=== PATIENT | male | born 1945 | race Caucasian/White ===

== ENCOUNTER → 2016-11-15 | Outpatient (CLI) | payer MEDICARE, BC ==
[2016-11-15 08:41] LABS: Blood Urea Nitrogen 23 mg/dL (9-20); Non-African American GFR(MDRD) >60 (>60 ml/min/1.73 sqM)
--- NOTE | 2016-11-15 10:58 | CT ---
EXAMINATION TYPE: CT ChestAbdPelvis w con DATE OF EXAM: 11/15/2016 COMPARISON: CT CAP April 19, 2016. HISTORY: Cancer of unknown primary progress study. CT DLP: 681.4 mGycm. Automated Exposure Control for Dose Reduction was Utilized. CONTRAST: CT scan of the thorax, abdomen and pelvis is performed with oral and with IV Contrast, patient inject ed with 100 mL of Omnipaque 300. FINDINGS: LUNGS: Minimal linear scarring or atelectasis in both lung bases remains present. Minimal apical scar ring is present bilaterally. No suspicious new nodule or mass is present. There is no pleural effus ion or pneumothorax seen. The tracheobronchial tree is patent. MEDIASTINUM: There are no greater than 1 cm hilar or mediastinal lymph nodes. There is persistent car diomegaly with moderate to severe right atrial and mild to moderate left atrial dilatation. Small per icardial effusion is redemonstrated. Coronary artery calcification is redemonstrated. OTHER: No additional significant abnormality is seen. LIVER/GB: Subcentimeter low dense lesion right hepatic lobe near gallbladder fossa on axial image 69 is too small to further characterize but stable and thought presumed benign. Additional smaller lesio n inferiorly is stable and presumed benign on image 78 series 7 PANCREAS: No significant abnormality is seen. SPLEEN: No significant abnormality is seen. ADRENALS: No significant abnormality is seen. KIDNEYS: Bladder is poorly distended and thus suboptimally evaluated. There is concentric mild abnorm al wall thickening, cystitis should be excluded clinically. Finding likely on basis of outlet obstruc tion related to enlarged prostate gland. BOWEL: Oral contrast reaches proximal colonic level. There is fecal prominence throughout the colon m ost pronounced in right and left and transverse colon. No suspicious small or large bowel dilatation is seen. Correlate for colonic fecal stasis. GENITAL ORGANS: Prostate gland is heterogeneous in appearance and enlarged in size consistent with BP H. Central zone calcifications are present. LYMPH NODES: No greater than 1cm abdominal or pelvic lymph nodes are appreciated. OSSEOUS STRUCTURES: Some multilevel spurring and disc space narrowing mid thoracic spine is present. There is disc space narrowing at lumbosacral junction. OTHER: Mild atherosclerotic change of the abdominal aorta extending into pelvic branch vessels is not ed.. IMPRESSION: No new mass or adenopathy is seen to suggest neoplastic recurrence or progression.
== END | disposition home or self-care (01) ==
LOC: RADCTMAIN 08:02
PROVIDERS: ATTEND Internal Medicine Hematology & Oncology
DX: C80.0 Disseminated malignant neoplasm, unspecified (principal)
CPT/HCPCS: 82565; 84520; 71260; 74177; 36415; Q9967

== ENCOUNTER → 2017-05-16 | Outpatient (CLI) | payer MEDICARE ==
[2017-05-16 12:11] LABS: Blood Urea Nitrogen 24 mg/dL (9-20)
--- NOTE | 2017-05-16 13:34 | CT ---
EXAMINATION TYPE: CT ChestAbdPelvis w con DATE OF EXAM: 05/16/2017 COMPARISON: 11/15/2016 HISTORY: Unknown primary CA CT DLP: 601.4 mGycm Automated exposure control for dose reduction was used. CONTRAST: CT scan of the chest, abdomen and pelvis is performed with Oral Contrast and with IV Contrast, patien t injected with 100 mL of Omnipaque 300. FINDINGS: LUNGS: Minimal linear scarring or atelectasis in both lung bases remains present. Minimal apical scar ring is present bilaterally. No suspicious new nodule or mass is present. There is no pleural effusio n or pneumothorax seen. The tracheobronchial tree is patent. MEDIASTINUM: There are no greater than 1 cm hilar or mediastinal lymph nodes. There is persistent car diomegaly with moderate to severe right atrial and mild to moderate left atrial dilatation. Small per icardial effusion is redemonstrated. Coronary artery calcification is redemonstrated. OTHER: No additional significant abnormality is seen. LIVER/GB: Subcentimeter low dense lesion right hepatic lobe near gallbladder fossa is too small to f urther characterize but stable and thought presumed benign. Additional smaller lesion inferiorly is s table and presumed benign. PANCREAS: No significant abnormality is seen. SPLEEN: No significant abnormality is seen. ADRENALS: No significant abnormality is seen. KIDNEYS: Bladder is poorly distended and thus suboptimally evaluated. There is concentric mild abnorm al wall thickening, cystitis should be excluded clinically. Finding likely on basis of outlet obstruc tion related to enlarged prostate gland. BOWEL: Oral contrast reaches proximal colonic level. There is fecal prominence throughout the colon m ost pronounced in right and left and transverse colon. No suspicious small or large bowel dilatation is seen. Correlate for colonic fecal stasis. Diverticulosis with no CT evidence of diverticulitis. GENITAL ORGANS: Prostate gland is heterogeneous in appearance and enlarged in size consistent with BP H. Central zone calcifications are present. LYMPH NODES: No greater than 1cm abdominal or pelvic lymph nodes are appreciated. OSSEOUS STRUCTURES: Some multilevel spurring and disc space narrowing mid thoracic spine is present. There is disc space narrowing at lumbosacral junction. Sclerosis the pars of L5 noted bilaterally wit h early pars defects suspected. OTHER: Mild atherosclerotic change of the abdominal aorta extending into pelvic branch vessels is not ed.. IMPRESSION: No new mass or adenopathy is seen to suggest neoplastic recurrence or progression.
== END | disposition home or self-care (01) ==
LOC: RADCTMAIN 11:18
PROVIDERS: ATTEND Internal Medicine Hematology & Oncology
DX: C80.0 Disseminated malignant neoplasm, unspecified (principal); Z91.013 Allergy to seafood
CPT/HCPCS: 82565; 84520; 71260; 74177; 36415; Q9967

== ENCOUNTER → 2017-11-15 | Outpatient (CLI) | payer MEDICARE ==
--- NOTE | 2017-11-15 15:10 | CT ---
EXAMINATION TYPE: CT ChestAbdPelvis w con DATE OF EXAM: 11/15/2017 COMPARISON: 05/16/2017 HISTORY: F/U CA CT DLP: 557.8 mGycm CONTRAST: CT scan of the chest, abdomen and pelvis is performed with Oral Contrast and with IV Contrast, patien t injected with 100 mL of Isovue 300. [address] Chest: LUNGS: The lungs are clear and free of infiltrate or atelectasis. No pulmonary nodule or mass is det ected. No pleural effusion or CT evidence of interstitial lung disease. MEDIASTINUM: Thoracic aorta is of normal caliber. The heart is enlarged. No evidence for mediastin al mass or adenopathy. HILAR STRUCTURES: No evidence for mass. No hilar adenopathy is appreciated. OTHER: No significant abnormality. CONTRAST CT ABDOMEN AND PELVIS FINDINGS: LIVER/GB: No calcified gallstones. No space occupying hepatic lesion. Biliary tree is of normal ca liber. PANCREAS: No inflammation. No distinct mass. SPLEEN: No splenic enlargement. No lesion seen. ADRENALS: No nodule. No thickening. KIDNEYS/BLADDER: No hydronephrosis. No nephrolithiasis. No distinct renal mass. BOWEL: Normal appendix. Normal bowel caliber. No inflammation. GENITAL ORGANS: Prostate gland enlargement with internal calcifications. LYMPH NODES: No greater than 1cm abdominal or pelvic lymph nodes are appreciated. AORTA: No significant abnormality. OSSEOUS STRUCTURES: No significant abnormality is seen. OTHER: No significant additional abnormality is seen. IMPRESSION: 1. No evidence for malignancy. 2 cardiomegaly. 3. COPD.
== END | disposition home or self-care (01) ==
LOC: RADCTMAIN 11:31
PROVIDERS: ATTEND Internal Medicine Hematology & Oncology
DX: C80.0 Disseminated malignant neoplasm, unspecified (principal); J44.9 Chronic obstructive pulmonary disease, unspecified
CPT/HCPCS: 82565; 84520; 71260; 74177; 36415; Q9967

== ENCOUNTER → 2018-02-27 | Outpatient (CLI) | payer MEDICARE ==
--- NOTE | 2018-02-27 15:17 | CT ---
EXAMINATION TYPE: CT soft tissue neck w con DATE OF EXAM: 02/27/2018 HISTORY: History of tongue cancer COMPARISON: 09/22/2015 and 11/15/2017 CT DLP: 338.2 mGycm. Automated Exposure Control for Dose Reduction was Utilized. TECHNIQUE: CT scan of the neck is performed with IV Contrast, patient injected with 100 mL of Isovue 300, axial images are obtained, coronal and sagittal reformatted images are reviewed. FINDINGS: Airway: The known tongue base mass is not identified. No recurrence is appreciated. The fossa of Ivone nmuller, torus tubarius, vallecula, piriform sinuses, true vocal cords, and false vocal cords are unr emarkable. Posterior nasopharynx and oropharynx are patent. Parotid/submandibular glands: No gross abnormality seen. Carotid/Vascular Structures: There is a conventional three-vessel branch pattern of the aortic arch. Great vessels of the neck are patent. Vertebral arteries are codominant. Osseous Structures: Mild multilevel degenerative changes of the cervical spine are seen with posterio r disc osteophyte complex at C3-C4 and mild (grade 1) retrolisthesis of C3 on C4. At this level there is mild spinal canal stenosis. Other: The visualized paranasal sinuses and mastoid air cells are well aerated. Visualized portions o f the globes are unremarkable. Dental fillings creates spray artifact and partially obscure visualiza tion of the mandible and maxilla. IMPRESSION: 1. No adenopathy or evidence of local recurrence. 2. Mild degenerative changes the cervical spine with malalignment at C3-C4 that is likely on a degene rative basis.
--- NOTE | 2018-02-28 12:45 | XR ---
EXAMINATION TYPE: XR thoracic spine complete DATE OF EXAM: 02/27/2018 CLINICAL HISTORY: Chronic back pain TECHNIQUE: Frontal, lateral, and swimmer's view of thoracic spine are obtained. COMPARISON: None. FINDINGS: Thoracic spine show satisfactory alignment without evidence of acute fracture or dislocatio n. Mild multilevel degenerative changes of thoracic spine are seen as intervertebral disc space narro wing, anterior osteophytes and endplate sclerosis. Very minimal bowing of the superior endplate of ap proximately T4 is seen although the anterior superior endplate vertebral body height is maintained an d therefore this is presumed to be on the basis of degenerative disc disease. Remaining vertebral bod y heights are preserved. Visualized ribs are unremarkable. IMPRESSION: No acute fracture or malalignment is seen in the thoracic spine. Mild multilevel degener ative disc disease of the thoracic spine.
== END ==
LOC: RADCTMAIN 13:31
PROVIDERS: ATTEND Otolaryngology
DX: Z08 Encounter for follow-up examination after completed treatment for malignant neoplasm (principal); Z85.810 Personal history of malignant neoplasm of tongue; M51.34 Other intervertebral disc degeneration, thoracic region
CPT/HCPCS: 82565; 84520; 72072; 70491; 36415; Q9967

== ENCOUNTER → 2018-09-20 | Outpatient (CLI) | payer MEDICARE ==
--- NOTE | 2018-09-20 12:58 | CT ---
EXAMINATION TYPE: CT neck chest w con DATE OF EXAM: 09/20/2018 COMPARISON: CT neck February 27, 2018. CT chest November 15, 2017 and older CTs. PET/CT December 21, 2014 an d July 13, 2014. HISTORY: Follow up scan per patient. Cancer unknown primary progress study per order. History of base of tongue cancer 4 years ago per patient. Completed treatment [address] DLP: 706.3 mGycm. Automated Exposure Control for Dose Reduction was Utilized. TECHNIQUE: CT scan of the neck and thorax are performed following with IV Contrast, patient injected with 100 mL of Isovue 300. FINDINGS: NECK: Airway: Thyroid gland remains small in size. No suspicious recurrent mass left tongue base. Parotid/submandibular glands: No gross abnormality seen. Carotid/Vascular Structures: Mild to moderate plaque bilateral carotid bulb level is redemonstrated e xtending into proximal internal carotid arteries without significant stenosis. Osseous Structures: Moderate disc space narrowing C5-C6, C6-C7, and C7-T1 level is redemonstrated. Other: Scattered subcentimeter lymph nodes are redemonstrated throughout the neck bilaterally. No def initive new greater than 1 cm adenopathy. CHEST: LUNGS: The lungs are grossly clear, there is no concerning new parenchymal mass or nodule identified. There is no pleural effusion or pneumothorax seen. The tracheobronchial tree is patent. MEDIASTINUM: There are no greater than 1 cm hilar or mediastinal lymph nodes. No pericardial effusi on is seen. Heart size is enlarged. There is mild coronary artery calcification which is noted marke d underlying coronary artery disease. There is moderate right greater than left biatrial dilatation. OTHER: Subcentimeter hypodense lesion near gallbladder fossa axial image 70 is too small to further c haracterize but presumed benign. IMPRESSION: No suspicious new mass or adenopathy identified to suggest neoplastic recurrence.
== END | disposition home or self-care (01) ==
LOC: RADCTMAIN 10:50
PROVIDERS: ATTEND Internal Medicine Hematology & Oncology
DX: C80.0 Disseminated malignant neoplasm, unspecified (principal); Z88.1 Allergy status to other antibiotic agents; Z91.013 Allergy to seafood
CPT/HCPCS: 82565; 84520; 70491; 71260; 36415; Q9967

== ENCOUNTER → 2019-01-04 | Outpatient (CLI) | payer MEDICARE ==
--- NOTE | 2019-01-04 12:06 | XR ---
EXAMINATION TYPE: XR Hip Bilateral Complete DATE OF EXAM: 01/04/2019 CLINICAL HISTORY: Chronic bilateral hip pain for approximately 2 years TECHNIQUE: AP and frogleg views of both hips were obtained. COMPARISON: None. FINDINGS: There is no acute fracture/dislocation evident in either hip. There is an osseous protuber ance at the right lateral femoral head neck junction relating to a cam deformity. There is cephalad j oint space narrowing and acetabular roof sclerosis with small marginal osteophytes. No suspicious oss eous lesion is seen. Some subchondral cyst formation is also noted. On the left there is acetabular r quoc sclerosis and cephalad joint space narrowing that is slightly lesser than on the right with subch ondral cyst formation. A smaller 10 deformity is also seen at the lateral left femoral head neck junc tion. No suspicious osseous lesion. The overlying soft tissue appears unremarkable. IMPRESSION: 1. No acute fracture or dislocation in either hip. 2. Cam deformities of the lateral femoral head neck junctions, right greater than left. 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 3. Moderate bilateral femoral acetabular arthropathy, right greater left.
--- NOTE | 2019-01-04 12:07 | XR ---
EXAMINATION TYPE: XR knee complete bilateral DATE OF EXAM: 01/04/2019 CLINICAL HISTORY: Chronic bilateral knee pain, right greater than left for approximately 2 years TECHNIQUE: Three views of both knees were obtained. COMPARISON: None. FINDINGS: There is no acute fracture/dislocation evident in either knee. On the right there is very mild medial compartment joint space narrowing and tiny tricompartmental osteophytes. Fabella is also incidentally noted. Extensor mechanism is intact radiographically. On the left there is very minimal medial compartment joint space narrowing and tiny patellar osteophytes. Fabella is also seen. Extenso r mechanism is not well visualized given technique. The overlying soft tissue appears unremarkable. IMPRESSION: 1. No acute fracture or dislocation in either knee. 2. Mild tricompartmental arthropathy in the right and bicompartmental arthropathy in the left.
--- NOTE | 2019-01-04 12:08 | XR ---
EXAMINATION TYPE: XR ankle complete bilateral DATE OF EXAM: 01/04/2019 CLINICAL HISTORY: Chronic ankle pain, right greater than left. TECHNIQUE: Frontal, lateral and oblique images of the bilateral ankles were obtained. COMPARISON: None. FINDINGS: There is no acute fracture/dislocation evident in either ankle. The ankle mortise appears within normal limits. Talar domes are intact. No suspicious osseous lesion. Osseous mineralization i s within normal limits. The overlying soft tissue appears unremarkable. IMPRESSION: No acute fracture or dislocation in either ankle. No significant arthropathy radiographically.
== END | disposition home or self-care (01) ==
LOC: RADXRMAIN 10:55
PROVIDERS: ATTEND Family Medicine
DX: M12.852 Other specific arthropathies, not elsewhere classified, left hip (principal); M12.851 Other specific arthropathies, not elsewhere classified, right hip; M12.862 Other specific arthropathies, not elsewhere classified, left knee; M12.861 Other specific arthropathies, not elsewhere classified, right knee; M25.571 Pain in right ankle and joints of right foot
CPT/HCPCS: 73521

== ENCOUNTER → 2019-10-09 | Outpatient (CLI) | payer MEDICARE ==
--- NOTE | 2019-10-09 12:38 | CT ---
EXAMINATION TYPE: CT neck chest w con DATE OF EXAM: 10/09/2019 COMPARISON: 09/20/2018 HISTORY: Follow up scan. CT DLP: 688.8 mGycm, Automated exposure control for dose reduction was used. CONTRAST: Performed injected with 100 mL of Isovue 300. TECHNIQUE: Axial images were obtained at 5 mm thick sections. Reconstructed images are reviewed on [employer] computer in the coronal plane. FINDINGS: CT neck: The torus tubarius and fossa of Rosenmuller are normal. Magnetic Doctor spaces are normal. Para nasal sinuses and mastoid air cells are clear. Parotid glands appear normal and symmetrical. Submandibular glands, are normal. Parapharyngeal spac es are normal. No suspicious adenopathy is evident. The hypopharynx appears within normal limits. Vocal cord level appear symmetrical. CT chest: Portion of the thyroid visualized is normal. No suspicious lung nodules or focal infiltrates are present. No enlarged mediastinal or hilar adenopathy is evident. The ascending aorta diameter at the level o f the main pulmonary artery is 3.3 cm. The main pulmonary artery diameter at the bifurcation is 3.1 cm. Mild coronary artery calcification is present. Limited CT sections are obtained through the upper abdomen. A 0.8 cm cyst is in the medial right lobe liver. This was present previously . IMPRESSIONS: 1. No suspicious changes within the CT neck CT chest
== END | disposition home or self-care (01) ==
LOC: RADCTMAIN 09:38
PROVIDERS: ATTEND Internal Medicine Hematology & Oncology
DX: C80.0 Disseminated malignant neoplasm, unspecified (principal); Z91.013 Allergy to seafood; Z88.3 Allergy status to other anti-infective agents
CPT/HCPCS: 82565; 84520; 70491; 71260; 36415; Q9967

== ENCOUNTER → 2020-10-15 | Outpatient (CLI) | payer MEDICARE ==
--- NOTE | 2020-10-15 20:03 | CT ---
EXAMINATION TYPE: CT chest wo con DATE OF EXAM: 10/15/2020 COMPARISON: 10-08-2020 HISTORY: Neck and tongue cancer CT DLP: 443 mGycm, Automated exposure control for dose reduction was used. CONTRAST: none TECHNIQUE: Axial images were obtained at 5 mm thick sections. Reconstructed images are reviewed on [employer] computer in the coronal plane. FINDINGS: Portion of the thyroid visualized is normal. No suspicious lung nodules or focal infiltrates are present. No enlarged mediastinal or hilar adenopathy is evident. The ascending aorta diameter at the level o f the main pulmonary artery is 3.5 cm. The main pulmonary artery diameter at the bifurcation is 3.1 cm. There is moderate coronary artery calcification. Limited CT sections are obtained through the upper abdomen. There is a 0.8 cm cyst in the liver. IMPRESSIONS: 1. No acute changes Chest CT.
== END | disposition home or self-care (01) ==
LOC: RADCTMAIN 10:37
PROVIDERS: ATTEND Internal Medicine Hematology & Oncology
DX: C02.9 Malignant neoplasm of tongue, unspecified (principal)
CPT/HCPCS: 71250

== ENCOUNTER → 2022-02-15 | Outpatient (CLI) | payer MEDICARE ==
--- NOTE | 2022-02-15 13:47 | CT ---
EXAMINATION TYPE: CT chest wo con CT DLP: 499 mGycm, Automated exposure control for dose reduction was used. DATE OF EXAM: 02/15/2022 9:21 AM COMPARISON: CT chest 10/15/2020. 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 TECHNIQUE: Multiple axial images were obtained through the chest without IV contrast. Lack of IV or o ral contrast limits evaluation of solid and hollow organ viscera. Coronal and sagittal reformats revi ewed. FINDINGS: LUNGS/ PLEURA: No pneumothorax, pleural effusion, or focal consolidation. Right middle lobe linear sc arring. Right lower lobe subsegmental atelectasis. No suspicious pulmonary nodules or masses. AIRWAY: Patent and unremarkable.. HEART: Moderately enlarged.. No pericardial effusion. Coronary arterial calcifications. MEDIASTINUM: No gross evidence of adenopathy. VASCULATURE: No aortic aneurysm. Atherosclerotic calcification of the aorta and its branches. MUSCULOSKELETAL: No acute osseous abnormalities. No aggressive osseous lesions. Multilevel degenerati ve changes of the thoracic spine. SOFT TISSUES/LYMPH NODES: Unremarkable. LOWER NECK: No significant findings. UPPER ABDOMEN: Stable 0.8 cm likely cyst within the liver. IMPRESSION: 1. No evidence for metastatic disease within the chest. 2. Moderate cardiomegaly.
== END | disposition home or self-care (01) ==
LOC: RADCTMAIN 09:03
PROVIDERS: ATTEND Internal Medicine Hematology & Oncology
DX: C44.42 Squamous cell carcinoma of skin of scalp and neck (principal); I51.7 Cardiomegaly
CPT/HCPCS: 71250

== ENCOUNTER → 2023-05-04 | Outpatient (CLI) | payer OTHER ==
--- NOTE | 2023-05-05 08:59 | XR ---
EXAMINATION TYPE: XR chest 2V DATE OF EXAM: 05/04/2023 1:38 PM CLINICAL INDICATION:Male, 77 years old with history of R05.9 COUGH; COMPARISON: Chest radiographs from 05/06/2012. TECHNIQUE: XR chest 2V Frontal and lateral views of the chest. FINDINGS: Lungs/Pleura: Reticular opacities in the right middle and right upper lung are new from 05/06/2012 Th ere is no evidence of pleural effusion, focal consolidation, or pneumothorax. Pulmonary vascularity: Unremarkable. Heart/mediastinum: Cardiomediastinal silhouette is enlarged and stable. embolic material noted projec ting over the heart. Musculoskeletal: No acute osseous pathology. IMPRESSION: Reticular opacities most pronounced in the right middle lobe and right upper lobe which could represe nt sequela prior infection or new developing atypical pneumonia.
== END | disposition home or self-care (01) ==
LOC: RADXRMAIN 13:22
PROVIDERS: ATTEND Family Medicine
DX: R91.8 Other nonspecific abnormal finding of lung field (principal); R05.3 Chronic cough
CPT/HCPCS: 71046

== ENCOUNTER → 2023-05-10 | Outpatient (CLI) | payer MEDICARE ==
--- NOTE | 2023-05-13 12:45 | CT ---
EXAMINATION TYPE: CT chest wo con CT DLP: 228.90 mGycm, Automated exposure control for dose reduction was used. DATE OF EXAM: 05/10/2023 9:17 AM COMPARISON: CT chest from 02/15/2022 and 10/15/2020. 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 Recent pneumonia, still has cough. TECHNIQUE: Multiple axial images were obtained through the chest. Sagittal and coronal reformats were created for review. Contrast used: mL of (None if empty) Oral contrast used: (None if empty) FINDINGS: Examination limited by lack of IV contrast. LUNGS/ PLEURA: Right middle lobe linear and bandlike opacity appears slightly more prominent, may rep resent scarring and/or subsegmental atelectasis. Bibasilar subsegmental atelectasis adjacent to small stable Bochdalek hernias. Small strandy opacity in the superior segment left lower lobe is stable, l ikely scarring. Left upper lobe is stable. There are new opacities in the right upper lobe. These are strandy and linear in the anterior lobe image 12, strandy and with small nodular components measurin g up to 8 mm, images 15 and 16. Small irregular density in the anteromedial lobe image 17. A 5.5 mm s olid appearing nodule image 18, and additional scattered small reticulonodular opacities. No clearly suspicious pulmonary nodules or masses. 21No large area of consolidation is seen. No pleural effusion or pneumothorax. AIRWAY: Patent and unremarkable.. HEART: Moderately enlarged. Trace pericardial fluid without significant effusion. Moderate coronary a rterial calcifications. What appears to be new embolic coil material in the region of the right upper heart, correlate with procedure history. Artifact from this limits evaluation of surrounding structu res. MEDIASTINUM: No gross evidence of adenopathy. VASCULATURE: No aortic aneurysm. Atherosclerotic calcification of the aorta and its branches. MUSCULOSKELETAL: No acute osseous abnormalities. No aggressive osseous lesions. Multilevel degenerati ve changes of the thoracic spine. SOFT TISSUES/LYMPH NODES: Unremarkable. LOWER NECK: No significant findings. UPPER ABDOMEN: Grossly stable 0.9 cm hypodensity in the right hepatic lobe, likely cyst. IMPRESSION: 1. Lungs appear stable, aside from new reticular nodular and linear opacities in the right upper lob e, and slightly progressed linear and bandlike opacities in the right middle lobe. These are favored to represent sequela of inflammatory/infectious process, in a patient who recently had pneumonia. The findings can be reassessed on subsequent follow-up imaging. 2. Otherwise no evidence of metastatic disease to the chest, in the limits of unenhanced exam. 3. Moderate cardiomegaly with new coil embolic material seen in the region of the right upper heart.
== END | disposition home or self-care (01) ==
LOC: RADCTMAIN 08:52
PROVIDERS: ATTEND Internal Medicine Hematology & Oncology
DX: I51.7 Cardiomegaly (principal); R91.8 Other nonspecific abnormal finding of lung field; C44.42 Squamous cell carcinoma of skin of scalp and neck; B54 Unspecified malaria; A75.3 Typhus fever due to Rickettsia tsutsugamushi; C80.0 Disseminated malignant neoplasm, unspecified; M40.209 Unspecified kyphosis, site unspecified; R05.9 Cough, unspecified; Z87.01 Personal history of pneumonia (recurrent)
CPT/HCPCS: 71250

== ENCOUNTER → 2023-06-13 | Outpatient (CLI) | payer MEDICARE, OTHER ==
[2023-06-13 15:43] LABS: Blood Urea Nitrogen 23.4 mg/dL (9.0-27.0); Calcium 9.4 mg/dL (8.7-10.3); Carbon Dioxide 26.3 mmol/L (21.6-31.8); Chloride 101 mmol/L (96-109); Glucose 85 mg/dL (70-110); Potassium 4.7 mmol/L (3.5-5.5); Sodium 138 mmol/L (135-145)
== END | disposition home or self-care (01) ==
LOC: LABWHC1 11:33
PROVIDERS: ATTEND Internal Medicine Cardiovascular Disease
DX: I07.1 Rheumatic tricuspid insufficiency (principal)
CPT/HCPCS: 36415; 80048

== ENCOUNTER → 2023-06-20 | Outpatient (CLI) | payer MEDICARE ==
--- NOTE | 2023-06-21 11:06 | CA ---
Transthoracic Echo Report Name: Flako Almendarez Age: 77 Gender: M : 1945 Exam Date: 06/20/2023 15:58 Exam Location: [place] [facility] Ht (in): 71 Wt (lb): 156 Ordering Physician: Asael Kern MD Attending/Referring Phys: Alton Stanford MD Power Equipment Mechanics Instructor Alise Hinton RDCS Procedure CPT: Indications: RHEUMATIC TRICUSPID INSUFFICIENCY Cardiac Hx: Technical Quality: Fair Contrast 1: Total Dose (mL): Contrast 2: Total Dose (mL): MEASUREMENTS (Male / Female) Normal Values 2D ECHO LV Diastolic Diameter PLAX 4.8 cm 4.2 - 5.9 / 3.9 - 5.3 cm LV Systolic Diameter PLAX 2.8 cm IVS Diastolic Thickness 1.4 cm 0.6 - 1.0 / 0.6 - 0.9 cm LVPW Diastolic Thickness 1.6 cm 0.6 - 1.0 / 0.6 - 0.9 cm LV Relative Wall Thickness 0.6 RV Internal Dim ED PLAX 3.7 cm M-MODE Aortic Root Diameter MM 2.5 cm LA Systolic Diameter MM 5.6 cm LA Ao Ratio MM 2.2 AV Cusp Separation MM 1.5 cm DOPPLER AV Peak Velocity 137.3 cm/s AV Peak Gradient 7.5 mmHg AV Mean Velocity 97.2 cm/s AV Mean Gradient 4.1 mmHg AV Velocity Time Integral 22.9 cm LVOT Peak Velocity 73.0 cm/s LVOT Peak Gradient 2.1 mmHg LVOT Velocity Time Integral 14.3 cm MV Area PHT 3.5 cm??? Mitral E Point Velocity 52.0 cm/s Mitral A Point Velocity 54.5 cm/s Mitral E to A Ratio 1.0 MV Deceleration Time 218.0 ms TR Peak Velocity 339.3 cm/s TR Peak Gradient 46.1 mmHg Right Ventricular Systolic Press 62.3 mmHg FINDINGS Left Ventricle Moderately increased left ventricular wall thickness. Left ventricular cavity size normal. Normal left ventricular systolic function with no obvious regional wall motion abnormalities. Left ventricular ejection fraction is estimated at 55 %. Right Ventricle Mild right ventricular dilatation. Moderate to severe pulmonary hypertension. Right ventricular systolic pressure estimated at 62 mm hg. Right Atrium Moderate right atrial dilatation. Left Atrium Moderate left atrial dilatation. Mitral Valve Structurally normal mitral valve. Mitral valve thickened. Moderate mitral annular calcification. Mild mitral regurgitation. Aortic Valve Trileaflet aortic valve. Mild aortic stenosis. No aortic regurgitation. Thickened aortic valve without stenosis. Tricuspid Valve Structurally normal tricuspid valve. Mild to moderate tricuspid regurgitation. Pulmonic Valve Structurally normal pulmonic valve. Trace pulmonic regurgitation. Pericardium No pericardial effusion. Aorta Normal size aortic root and proximal ascending aorta. CONCLUSIONS Moderate increased left ventricular wall thickness Left ventricular ejection fraction 55% RVSP 62 Moderate biatrial enlargement Moderate mitral aortic calcification Mild mitral regurgitation Thickened and mildly calcified aortic valve leaflets with more prominent thickening of the non-coronary cusp however only mild aortic stenosis. Mild to moderate tricuspid regurgitation Previewed by: Dr. Jose Cortez DO (Electronically Signed) Final Date: 21 June 2023 11:06
== END | disposition home or self-care (01) ==
LOC: RADECHMAIN 15:55
PROVIDERS: ATTEND Internal Medicine Cardiovascular Disease
DX: I07.1 Rheumatic tricuspid insufficiency (principal)
CPT/HCPCS: 93306

== ENCOUNTER → 2023-07-08 | Outpatient (CLI) | payer MEDICARE ==
--- NOTE | 2023-07-10 20:53 | CT ---
EXAMINATION TYPE: High-resolution CT chest DATE OF EXAM: 07/08/2023 COMPARISON: 05/10/2023 and 02/15/2022 HISTORY: 78-year-old male J84.9, Interstitial pulmonary disease TECHNIQUE: Thin cut scanning of the chest in both prone and supine positioning preprocedure CT protoc ol. Additional expiratory scan was obtained. No IV contrast. CT DLP: 1104mGycm. Automatic exposure control utilized for a dose reduction. FINDINGS: The heart is mildly enlarged without pericardial effusion. Metal artifact from a related to be a foca l liver device. Mild LAD coronary artery calcifications. Mild ectasia upper descending thoracic aorta 3.2 cm. Conventional arch. NG anatomy. No thoracic lymphadenopathy by CT size criteria. Mildly enlarged caliber to the main right and left pulmonary arteries up to 2.7 cm suggest underlying pulmonary arterial hypertension. Lungs show ongoing patchy consolidation and some volume loss in the right middle lobe and some associ ated bronchiolectasis. Increasing new patchy peripheral and peribronchial vascular opacities along with groundglass and some nodularity in the right upper lobe. Biapical pleural parenchymal scarring. Underlying mild emphysematous change. Unchanged patchy posterior right basilar opacity likely reflecting pleural-parenchymal scarring. Annika cent fatty right Bochdalek hernia. No honeycombing, centrilobular nodules, thickening of the central bronchovascular bundles, or perilym phatic nodularity. Visualized upper abdomen is a benign 1.0 cm right hepatic lobe cyst and moderate stool burden. IMPRESSION: 1. COPD with mild emphysema. Pulmonary arterial hypertension. Mild cardiomegaly. 2. Volume loss and consolidation in a portion of the right middle lobe remains unchanged for 2 months but new or increased from 02/15/2022. Associated mild bronchiectasis. Possible chronic postinfectiou s etiology. More long-term stability should be demonstrated. 3. Interval worsening patchy infiltrate along with groundglass and some nodularity within the right u pper lobe mid lung. Consider pneumonia, atypical infections, or interstitial pneumonitis such as BILINGUAL MEDICAL RECEPTIONIST. Follow-up to ensure clearance.
== END | disposition home or self-care (01) ==
LOC: RADCTMAIN 12:25
PROVIDERS: ATTEND Internal Medicine Critical Care Medicine
DX: J44.9 Chronic obstructive pulmonary disease, unspecified (principal); J84.9 Interstitial pulmonary disease, unspecified; I51.7 Cardiomegaly; I27.20 Pulmonary hypertension, unspecified; J43.9 Emphysema, unspecified; J47.9 Bronchiectasis, uncomplicated; R91.8 Other nonspecific abnormal finding of lung field
CPT/HCPCS: 71250

== ENCOUNTER 2023-07-22 06:50 | Day surgery (SDC) | payer MEDICARE ==
[~2023-07-22 06:50] MED LIST: ATROPINE SULFATE 0.4 MG/ML 1 ML VIAL IM ONE; LACTATED RINGERS 1,000 ML IV SCH
[2023-07-22] MEDS: LACTATED RINGERS 1,000 ML IV SCH (07:33)
[2023-07-22] MEDS ORDERED: ePHEDrine 50 MG/ML 1 ML VIAL ONE (07:40)
[2023-07-22] MEDS ORDERED: MIDAZOLAM 2 MG/2 ML VIAL ONE (07:40)
[2023-07-22] MEDS ORDERED: LIDOCAINE 4% LTA KIT (4 ML) TOPICAL ONE (07:40)
[2023-07-22] MEDS ORDERED: GLYCOPYRROLATE 0.2 MG/ML 2 ML VIAL ONE (07:40)
[2023-07-22] MEDS ORDERED: fentaNYL (PF) 50 MCG/ML 2 ML AMP ONE (07:40)
[2023-07-22] MEDS ORDERED: PROPOFOL 10 MG/ML 20 ML VIAL IV ONE (07:40)
[2023-07-22] MEDS ORDERED: SUCCINYLCHOLINE CHLORIDE 200 MG/10 ML VIAL IV ONE (07:40)
[2023-07-22 08:35] VITALS: RESP 16; TEMP 97.3
--- NOTE | 2023-07-22 08:40 | OP ---
OPERATIVE REPORT DATE OF SERVICE : PROCEDURE: Bronchoscopy, airway examination, therapeutic lavage, BAL, right upper lobe, also BAL, right middle lobe, brushes, right upper lobe, brushes right middle lobe, and transbronchial biopsies, right upper lobe. PREOPERATIVE DIAGNOSIS: Interstitial lung disease versus atypical infection. POSTOPERATIVE DIAGNOSIS: Interstitial lung disease versus atypical infection. FIRST VENETIAN BLIND TAPE CUTTER: Dr. Mariela Hoffman. The patient's procedure took place in room #1 [facility]. DESCRIPTION OF PROCEDURE: Anesthesia provided general anesthesia with tracheal intubation. There was informed consent and universal timeout. After the patient was anesthetized and on the ventilator, the bronchoscope was inserted through the bronchoscope adapter connected to the endotracheal tube. We did a thorough evaluation of both lungs initially including the right upper lobe and its 3 segments, right middle lobe and its 2 segments, right lower lobe and its 5 segments, left upper lobe proper and its 2 segments, lingula and its 2 segments, and left lower lobe and its 4 segments. Under fluoroscopic guidance, we did brushes to the right upper lobe and brushes to the right middle lobe. Next, under fluoroscopic guidance, we did multiple transbronchial biopsies to the right upper lobe. We got at least 8 good pieces. Finally, we did BAL to the right upper lobe and also to the right middle lobe. The patient tolerated the procedure well. There was minimal bleeding. The bleeding stopped prior to the bronchoscope being removed. There airway exam itself was relatively normal, although there were some secretions throughout. They were thin. There was no dominant mass or tumor. The patient tolerated the procedure well. We checked for pneumothorax under fluoroscopy, before the bronchoscope was withdrawn. There was no evidence of pneumothorax. A formal chest x-ray will be ordered. The patient tolerated the procedure well. The patient will be extubated and recovered. We did speak to the patient's . MMODL / IJN: [id number] /
--- NOTE | 2023-07-22 08:59 | XR ---
EXAMINATION TYPE: XR chest 1V DATE OF EXAM: 07/22/2023 COMPARISON: 05/04/[address] 07/08/2023 HISTORY: 78 year-old male post bronchoscopy TECHNIQUE: Single frontal view of the chest is obtained. FINDINGS: External artifact limiting assessment of the right upper lung. Mild cardiomegaly. Hyperinf lation. Some patchy medial right basilar and possible peripheral right upper lobe opacities likely co rresponding to opacities seen on patient's CT. No convincing pneumothorax. No pleural effusion. IMPRESSION: 1. Cardiomegaly and COPD. 2. Prominent external artifact significantly limits assessment of the right upper lobe. No obvious pn eumothorax. 3. Subtle patchy infiltrates may be present right upper lobe and medial right base corresponding to d ensities on recent CT.
--- NOTE | 2023-07-22 09:13 | FL ---
EXAMINATION TYPE: FL bronchoscopy Intraoperative/procedural fluoroscopic services were provided. Tota l fluoroscopy time is 30 seconds with a total of 1 submitted images to PACS. Please see the operative /procedural note for further details. DAP: 0.6772 mGym2
[2023-07-22] MEDS ORDERED: hydrALAZINE HCL 20 MG/ML 1 ML VIAL ONE (09:47)
[2023-07-22] MEDS: hydrALAZINE HCL 20 MG/ML 1 ML VIAL IVP ONE (09:49)
[2023-07-22 10:29] VITALS: BP 137/78
[2023-07-22 10:30] VITALS: PULSE 73
[2023-07-22 20:17] LABS: Appearance,BF Cloudy (Clear); RBC, Body Fluid 1875 /UL (0-2000)
[2023-07-22 20:21] LABS: Appearance,BF Blood Tinged (Clear); RBC, Body Fluid 13500 /UL (0-2000)
[2023-07-25 14:27] LABS: Nucleated Cells, Body Fluid 98 /UL
[2023-07-25 14:29] LABS: Nucleated Cells, Body Fluid 173 /UL
== END 2023-07-22 10:06 | disposition home or self-care (01) ==
LOC: ORWHC2ENDO 06:50
PROVIDERS: ATTEND Internal Medicine Critical Care Medicine
DX: J84.9 Interstitial pulmonary disease, unspecified (principal); I48.91 Unspecified atrial fibrillation; I10 Essential (primary) hypertension; K46.9 Unspecified abdominal hernia without obstruction or gangrene; Z85.810 Personal history of malignant neoplasm of tongue; E78.5 Hyperlipidemia, unspecified; E03.9 Hypothyroidism, unspecified; Z79.890 Hormone replacement therapy; Z79.01 Long term (current) use of anticoagulants; Z79.899 Other long term (current) drug therapy; Z98.890 Other specified postprocedural states
CPT/HCPCS: 88305; 89050; 87070; 87205; 87116; 87102; 87206; 71045; 31628; 31623; 31624; J2250; J0330; J0360; J3010; J2704; 88104

== ENCOUNTER 2023-08-24 11:33 | Day surgery (SDC) | payer MEDICARE ==
[2023-08-22 12:43] VITALS: BMI 21.6
--- NOTE | 2023-08-24 08:41 | P.GSHP ---
History of Present Illness H&P Date: 08/24/23 CHIEF COMPLAINT: Colon screen HISTORY OF PRESENT ILLNESS: The patient is a 78-year-old male who presents for colon screen. Lower endoscopy was offered for further evaluation and management. PAST MEDICAL HISTORY: Please see list. PAST SURGICAL HISTORY: Please see list. MEDICATIONS: Please see list. ALLERGIES: Please see list. SOCIAL HISTORY: No illicit drug use FAMILY HISTORY: No reports of Crohn disease or ulcerative colitis. REVIEW OF ORGAN SYSTEMS: CONSTITUTIONAL: No reports of fevers or chills. PHYSICAL EXAM: VITAL SIGNS: Stable GENERAL: Well-developed pleasant in no acute distress. HEENT: No scleral icterus. Extraocular movements grossly intact. Moist buccal mucosa. NECK: Supple without lymphadenopathy. CHEST: Unlabored respirations. Equal bilateral excursions. CARDIOVASCULAR: Regular rate and rhythm. Distal 2+ pulses. ABDOMEN: Soft, nontender, nondistended. MUSCULOSKELETAL: No clubbing, cyanosis, or edema. ASSESSMENT: 1. Colon screen. PLAN: 1. Recommend proceeding with a lower endoscopy Past Medical History Past Medical History: Atrial Fibrillation, Blood Disorder, Cancer, Hyperlipidemia, Hypertension, Pneumonia, Prostate Disorder, Sleep Apnea/CPAP/BIPAP, Thyroid Disorder Additional Past Medical History / Comment(s): tinnitus, allergies, thrombocytopenia, no cpap used ,chronic cough, pneumonia after last cardiac ablation, throat cancer, chronic cough-cleared through Dr Castillo so far and started on Prednisone History of Any Multi-Drug Resistant Organisms: None Reported Past Surgical History: Cardiac Ablation, Heart Catheterization Additional Past Surgical History / Comment(s): MICHELLE X2, CARDIOVERSION, EYE SX (GROWTH ON LEFT EYELID REMOVED) Past Anesthesia/Blood Transfusion Reactions: Motion Sickness Past Psychological History: Anxiety, PTSD Additional Psychological History / Comment(s): . 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 Drug Use History: None Reported - Past Family History Father Family Medical History: No Reported History Medications and Allergies Home Medications Medication Instructions Recorded Confirmed Type Cetirizine HCl [Zyrtec] 10 mg PO HS 09/14/13 08/22/23 History Levothyroxine Sodium [Synthroid] 88 mcg PO DAILY 09/14/13 08/22/23 History Magnesium 400 mg PO DAILY 09/14/13 08/22/23 History Psyllium Husk 100% [Metamucil 6 gm PO DAILY 09/14/13 08/22/23 History Packet] Tamsulosin [Flomax] 0.4 mg PO DAILY 09/14/13 08/22/23 History Apixaban [Eliquis] 5 mg PO BID 05/21/14 08/22/23 History Cbd 20 mg PO BID 07/19/23 08/22/23 History Losartan Potassium 50 mg PO DAILY 07/19/23 08/22/23 History Rosuvastatin [Crestor] 10 mg PO HS 07/19/23 08/22/23 History Cholecalciferol [Vitamin D3 (25 25 mcg PO DAILY 08/22/23 08/22/23 History Mcg = 1000 Iu)] Melatonin [Melatonin ER] 10 mg PO HS 08/22/23 08/22/23 History predniSONE 10 mg PO DAILY 08/22/23 08/22/23 History Allergies Allergy/AdvReac Type Severity Reaction Status Date / Time quinine Allergy Unknown Verified 08/22/23 12:38 shellfish derived Allergy Dyspnea Verified 08/22/23 12:38
[2023-08-24 12:44] VITALS: TEMP 98.4
[2023-08-24] MEDS: LACTATED RINGERS 1,000 ML IV SCH (12:52)
[2023-08-24 12:58] LABS: Glucose,Whole Blood 94 mg/dL (70-110)
[2023-08-24] MEDS ORDERED: PROPOFOL 10 MG/ML 20 ML VIAL IV ONE (13:00)
[2023-08-24 14:08] VITALS: BP 153/81; PULSE 61
[2023-08-24 14:09] VITALS: RESP 18
--- NOTE | 2023-08-24 14:24 | P.PCN ---
Date of Procedure: 08/24/23 Description of Procedure: PREOPERATIVE DIAGNOSIS: Abnormal stool test, positive Cologuard Colonoscopy screening. POSTOPERATIVE DIAGNOSIS: Colonoscopy screening. Diverticulosis, scattered. OPERATION: Colonoscopy to the cecum, ileocecal valve and appendiceal orifice. SURGEON: Hilary Max MD. ANESTHESIA: MAC. INDICATIONS: The patient is a 78-year-old male who presents for colonoscopy screening. No prior colonoscopy. Presents with positive Cologuard testing. Benefits and risks were described and informed consent was obtained. DESCRIPTION OF PROCEDURE: The patient had undergone Sutab prep. The patient had been brought into the operating room and laid in the left lateral decubitus position. After adequate intravenous sedation, the rectum was examined with 2% lidocaine jelly. No external hemorrhoids were encountered. The rectal tone was within normal limits. No lesions were palpated in the rectal vault. An Olympus colonoscope was advanced until the cecum, ileocecal valve and appendiceal orifice were clearly viewed. The prep was excellent. Scattered diverticulosis was encountered. No colonic polyps were found. No evidence of focal colitis was found. Retroflexion of the scope demonstrated grade 1 internal hemorrhoids without active bleeding or inflammation. The colon was desufflated. The patient had tolerated the procedure well. Withdrawal time was over 6 minutes. FINDINGS: Aronchick preparation quality scale (1-5) Internal hemorrhoids, grade 1 No external prolapsed hemorrhoids. No arteriovenous malformations. No adenomatous polyps. No focal colitis. RECOMMENDATIONS: Lower endoscopy in 5 years, 2028 Plan - Discharge Summary Discharge Rx Participant: No New Discharge Prescriptions: Continue Tamsulosin [Flomax] 0.4 mg PO DAILY Levothyroxine Sodium [Synthroid] 88 mcg PO DAILY Cetirizine HCl [Zyrtec] 10 mg PO HS Psyllium Husk 100% [Metamucil Packet] 6 gm PO DAILY Magnesium 400 mg PO DAILY Apixaban [Eliquis] 5 mg PO BID Losartan Potassium 50 mg PO DAILY Cbd 20 mg PO BID Cholecalciferol [Vitamin D3 (25 Mcg = 1000 Iu)] 25 mcg PO DAILY predniSONE 10 mg PO DAILY Rosuvastatin [Crestor] 10 mg PO HS Melatonin [Melatonin ER] 10 mg PO HS Discharge Medication List Cetirizine HCl [Zyrtec] 10 mg PO HS 09/14/13 [History] Levothyroxine Sodium [Synthroid] 88 mcg PO DAILY 09/14/13 [History] Magnesium 400 mg PO DAILY 09/14/13 [History] Psyllium Husk 100% [Metamucil Packet] 6 gm PO DAILY 09/14/13 [History] Tamsulosin [Flomax] 0.4 mg PO DAILY 09/14/13 [History] Apixaban [Eliquis] 5 mg PO BID 05/21/14 [History] Cbd 20 mg PO BID 07/19/23 [History] Losartan Potassium 50 mg PO DAILY 07/19/23 [History] Rosuvastatin [Crestor] 10 mg PO HS 07/19/23 [History] Cholecalciferol [Vitamin D3 (25 Mcg = 1000 Iu)] 25 mcg PO DAILY 08/22/23 [History] Melatonin [Melatonin ER] 10 mg PO HS 08/22/23 [History] predniSONE 10 mg PO DAILY 08/22/23 [History] Follow up Appointment(s)/Referral(s): Hilary Max MD [STAFF PHYSICIAN] - 08/30/23 (Telehealth) Patient Instructions/Handouts: Diverticulosis Diet (GEN), Diverticulosis (DC) Activity/Diet/Wound Care/Special Instructions: DO NOT RE-START BLOOD THINNER FOR SURGERY TOMORROW. Repeat colonoscopy 5 years, 2028 Discharge Disposition: HOME SELF-CARE
== END 2023-08-24 14:57 | disposition home or self-care (01) ==
LOC: ORWHC2ENDO 11:33
PROVIDERS: ATTEND Surgery Plastic and Reconstructive Surgery
DX: K57.30 Diverticulosis of large intestine without perforation or abscess without bleeding (principal); K64.0 First degree hemorrhoids; E78.5 Hyperlipidemia, unspecified; G47.30 Sleep apnea, unspecified; I10 Essential (primary) hypertension; I48.91 Unspecified atrial fibrillation; Z79.01 Long term (current) use of anticoagulants; Z79.52 Long term (current) use of systemic steroids; Z79.899 Other long term (current) drug therapy; Z87.891 Personal history of nicotine dependence
CPT/HCPCS: 45378; J2704

== ENCOUNTER 2023-08-25 08:09 | Day surgery (SDC) | payer MEDICARE ==
[2023-08-22 13:23] VITALS: BMI 21.6
--- NOTE | 2023-08-25 07:16 | P.GSHP ---
History of Present Illness H&P Date: 08/25/23 CHIEF COMPLAINT: Inguinal hernia, right. HISTORY OF PRESENT ILLNESS: The patient is a 78-year-old male who presents with a history of swelling and pain along the right groin. He's noted increased swelling including pain of the area. Now he presents for repair of his inguinal hernia. PAST MEDICAL HISTORY: Please see list. PAST SURGICAL HISTORY: Please see list. MEDICATIONS: Please see list. ALLERGIES: Please see list. SOCIAL HISTORY: No illicit drug use FAMILY HISTORY: No reports of Crohn disease or ulcerative colitis. REVIEW OF ORGAN SYSTEMS: CONSTITUTIONAL: Denies any fever or chills. Denies recent weight loss or weight gain. HEENT: Denies any trouble with vision, hearing or nosebleeds. No difficulty swallowing. LYMPHATIC: The patient denies any lumps and bumps around the neck. ENDOCRINE: Denies any thyroid disorders. Denies any blood sugar glucose into lerance. RESPIRATORY: CARDIOVASCULAR: Has atrial fibrillation. Has chronic obstructive pulmonary disease. GASTROINTESTINAL: Denies heart burn, constipation or bright red blood per rectum. GENITOURINARY: Denies any blood in urine or increased urinary frequency. MUSCULOSKELETAL: Has has hypertensive heart disease. Back pain, stiffness, joint arthritis. NEUROLOGIC: Denies any numbness or tingling along the distal extremities. No seizure disorders or headaches. PSYCHIATRIC: Denies depression or suidical ideation. HEMATOLOGIC: Denies any abnormal bleeding or bruising. BREASTS: Denies any breast lumps, pain or nipple discharge. SKIN: Denies any severe rash or previous skin cancer. PHYSICAL EXAM: VITAL SIGNS: Stable GENERAL: Well-developed pleasant male in no acute distress. HEENT: No scleral icterus. Extraocular movements grossly intact. Moist buccal mucosa. NECK: Supple without lymphadenopathy. CHEST: Unlabored respirations. Equal bilateral excursions. CARDIOVASCULAR: Regular rate and rhythm. Distal 2+ pulses. ABDOMEN: Soft, nondistended. No peritoneal signs. Palpable defect of the right groin. MUSCULOSKELETAL: No clubbing, cyanosis, or edema. SKIN: Well-perfused. ASSESSMENT: 1. Inguinal hernia, right 2. Chronic atrial fibrillation 3. Hypertensive heart disease chronic anticoagulation 4. Chronic anticoagulation PLAN: 1. Recommend proceeding with a robotic inguinal repair with mesh with possible bilateral approach. 2. Benefits and risks of surgical intervention was discussed including possibility of open technique. 3. DVT prophylaxis. 4. Antibiotic prophylaxis. 5. Non narcotic pain management including abdominal wall block described 6. Blood sugar glucose described. 7. Weight loss management described. 8. He is elevated risk due to multiple comorbidities. Past Medical History Past Medical History: Atrial Fibrillation, Blood Disorder, Cancer, Hyperlipidemia, Hypertension, Pneumonia, Prostate Disorder, Sleep Apnea/CPAP/BIPAP, Thyroid Disorder Additional Past Medical History / Comment(s): tinnitus, allergies, thrombocytopenia, no cpap used ,chronic cough, pneumonia after last cardiac ablation, throat cancer, chronic cough-cleared so far with Dr. Castillo and put on prednisone History of Any Multi-Drug Resistant Organisms: None Reported Past Surgical History: Cardiac Ablation, Heart Catheterization Additional Past Surgical History / Comment(s): MICHELLE X2, CARDIOVERSION, EYE SX (GROWTH ON LEFT EYELID REMOVED) Past Anesthesia/Blood Transfusion Reactions: Motion Sickness Past Psychological History: Anxiety, PTSD Additional Psychological History / Comment(s): . 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 Drug Use History: None Reported - Past Family History Father Family Medical History: No Reported History Medications and Allergies Home Medications Medication Instructions Recorded Confirmed Type Cetirizine HCl [Zyrtec] 10 mg PO HS 09/14/13 08/24/23 History Levothyroxine Sodium [Synthroid] 88 mcg PO DAILY 09/14/13 08/24/23 History Magnesium 400 mg PO DAILY 09/14/13 08/24/23 History Psyllium Husk 100% [Metamucil 6 gm PO DAILY 09/14/13 08/24/23 History Packet] Tamsulosin [Flomax] 0.4 mg PO DAILY 09/14/13 08/24/23 History Apixaban [Eliquis] 5 mg PO BID 05/21/14 08/24/23 History Cbd 20 mg PO BID 07/19/23 08/24/23 History Losartan Potassium 50 mg PO DAILY 07/19/23 08/24/23 History Rosuvastatin [Crestor] 10 mg PO HS 07/19/23 08/24/23 History Cholecalciferol [Vitamin D3 (25 25 mcg PO DAILY 08/22/23 08/24/23 History Mcg = 1000 Iu)] Melatonin [Melatonin ER] 10 mg PO HS 08/22/23 08/24/23 History predniSONE 10 mg PO DAILY 08/22/23 08/24/23 History Allergies Allergy/AdvReac Type Severity Reaction Status Date / Time quinine Allergy Unknown Verified 08/24/23 12:32 shellfish derived Allergy Dyspnea Verified 08/24/23 12:32
[~2023-08-25 08:09] MED LIST changes: -ATROPINE SULFATE 0.4 MG/ML 1 ML VIAL IM ONE; +HEPARIN SODIUM,PORCINE 5,000 UNIT/ML 1 ML VIAL SQ PRN; +HYDROmorphone 0.5 MG/0.5 ML SYRINGE IVP PRN; -LACTATED RINGERS 1,000 ML IV SCH; +ONDANSETRON 4 MG/2 ML VIAL IVP ONE; +TAMSULOSIN 0.4 MG CAP.ER.24H PO STA
[2023-08-25] MEDS: LACTATED RINGERS 1,000 ML IV SCH (08:42)
[2023-08-25] MEDS: MELOXICAM 7.5 MG TAB PO PRN (09:14)
[2023-08-25] MEDS: ACETAMINOPHEN TAB 500 MG TAB PO PRN (09:14)
[2023-08-25] MEDS: ONDANSETRON 4 MG/2 ML VIAL IVP PRN (09:19)
[2023-08-25] MEDS: DEXAMETHASONE SOD PHOSPHATE 4 MG/ML 1 ML VIAL IV ONE (09:19)
[2023-08-25 09:48] LABS: MCH 32.1 pg (25.0-35.0); MCHC 33.5 g/dL (31.0-37.0); MCV 95.8 fL (80.0-100.0); Mean Platelet Volume 7.2; Platelet Count 154 k/uL (150-450); RBC 4.07 m/uL (4.30-5.90); RDW 13.5 % (11.5-15.5); WBC 6.7 k/uL (3.8-10.6)
[2023-08-25] MEDS: MIDAZOLAM 2 MG/2 ML VIAL IVP ONE (09:49)
[2023-08-25] MEDS: HYDROCORTISONE SUCCINATE 100 MG/2 ML VIAL IVP ONE (09:52)
[2023-08-25] MEDS ORDERED: fentaNYL (PF) 50 MCG/ML 2 ML AMP ONE (09:55)
[2023-08-25] MEDS ORDERED: NEOSTIGMINE 1 MG/ML 10 ML VIAL ONE (09:55)
[2023-08-25] MEDS ORDERED: DEXAMETHASONE SOD PHOSPHATE 4 MG/ML 1 ML VIAL ONE (09:55)
[2023-08-25] MEDS ORDERED: HEPARIN SODIUM,PORCINE 5,000 UNIT/ML 1 ML VIAL ONE (09:55)
[2023-08-25] MEDS ORDERED: SODIUM CHLORIDE 0.9% (PF) 10 ML VIAL ONE (09:55)
[2023-08-25] MEDS ORDERED: ROPIVACAINE 5 MG/ML 30 ML VIAL ONE (09:55)
[2023-08-25] MEDS ORDERED: PROPOFOL 10 MG/ML 20 ML VIAL IV ONE (09:55)
[2023-08-25] MEDS ORDERED: HYDROmorphone (PF) 1 MG/ML ONE (09:55)
[2023-08-25] MEDS ORDERED: ePHEDrine 50 MG/ML 1 ML VIAL ONE (09:55)
[2023-08-25] MEDS ORDERED: ROCURONIUM 10 MG/ML (5 ML VIAL) IV ONE (09:55)
[2023-08-25] MEDS ORDERED: MIDAZOLAM 2 MG/2 ML VIAL ONE (09:55)
[2023-08-25] MEDS ORDERED: LIDOCAINE 1% INJ 10MG/ML (20 ML MDV) ONE (09:55)
[2023-08-25] MEDS ORDERED: GLYCOPYRROLATE 0.2 MG/ML 2 ML VIAL ONE (09:55)
[2023-08-25] MEDS ORDERED: SUCCINYLCHOLINE CHLORIDE 200 MG/10 ML VIAL IV ONE (09:55)
[2023-08-25 09:59] LABS: ALT 17 U/L (4-49); AST 30 U/L (17-59); African American GFR (CKD) 79 (>60 ml/min/1.73 sqM); Albumin 4.1 g/dL (3.5-5.0); Alkaline Phosphatase 88 U/L (38-126); Anion Gap 6 mmol/L; Blood Urea Nitrogen 19 mg/dL (9-20); Calcium 9.1 mg/dL (8.4-10.2); Carbon Dioxide 27 mmol/L (22-30); Chloride 106 mmol/L (98-107); Glucose 96 mg/dL (74-99); Non-African American GFR(CKD) 68 (>60 ml/min/1.73 sqM); Sodium 139 mmol/L (137-145); Total Bilirubin 0.9 mg/dL (0.2-1.3); Total Protein 6.6 g/dL (6.3-8.2)
[2023-08-25] MEDS: LIDOCAINE 1%-EPI 1:100,000 20 ML VIAL SQ ONE ×2 (10:21→10:25)
[2023-08-25] MEDS: LACTATED RINGERS 1,000 ML IV ONE (11:32)
--- NOTE | 2023-08-25 12:08 | P.OP ---
Date of Procedure: 08/25/23 Description of Procedure: SURGEON: HILARY MAX MD PREOPERATIVE DIAGNOSES: 1. Initial right inguinal hernia 2. Hypertensive heart disease 3. Hyperlipidemia 4. Atrial fibrillation, chronic 5. Hypothyroidism 6. Chronic anticoagulation 7. Chronic obstructive pulmonary disease 8. Obstructive sleep apnea 9. Obstructive uropathy due to prostate disorder 10. Thrombocytopenia 11. Coronary artery disease 12. History of cardioversion 13. Generalized anxiety disorder 14. Posttraumatic stress disorder POSTOPERATIVE DIAGNOSES: 1. Initial right inguinal hernia, indirect 2. Hypertensive heart disease 3. Hyperlipidemia 4. Atrial fibrillation, chronic 5. Hypothyroidism 6. Chronic anticoagulation 7. Chronic obstructive pulmonary disease 8. Obstructive sleep apnea 9. Obstructive uropathy due to prostate disorder 10. Thrombocytopenia 11. Coronary artery disease 12. History of cardioversion 13. Generalized anxiety disorder 14. Posttraumatic stress disorder OPERATION: 1. Robotic-assisted da Margo Xi laparoscopic reduction and repair of initial incarcerated left indirect inguinal hernia with mesh, 11.[address] ANESTHESIA: General with local anesthetic ESTIMATED BLOOD LOSS: 10 mL. SPECIMENS: 1. Right inguinal hernia sac COMPLICATIONS: None. FINDINGS: 1. Pelvic adhesion including small bowel adhesion to right inguinal hernia lysed 2. No hernia on the left side INDICATIONS: The patient is a 78-year-old gentleman who presents with symptomatic right inguinal hernia. Now presents for definitive surgical intervention. Laparoscopic versus open and robotic approaches were discussed. Benefits and risks including bleeding, infection, injury to the vas deferens as well as sterility and chronic groin pain were reviewed. Placement of mesh was also described. Informed consent was obtained. DESCRIPTION: In the preoperative area, the patient was marked with indelible marker along the inguinal hernia. The patient was brought to the operating room and initially laid in supine position. The abdomen had been prepped and draped in standard sterile fashion. Ioban draping was also placed. Prior to incision, a timeout protocol was confirmed with surgical team regarding patient's name including procedures to be performed and location along the right groin. Initial positioning for the robotic assisted ports were selected whereby 15 cm superior to the target anatomy, 0 degree 5 mm laparoscopic trocar entry was performed at the left upper quadrant. The abdomen was insufflated to 15 mmHg which he had tolerated well. Diagnostic laparoscopy demonstrated no injury to bowel, viscera or mesentery. Next, along the epigastrium, 8 mm robot trocar was placed. An 8-mm robotic trocar was placed under direct visualization at the right upper quadrant. An 8 mm port was placed at the left upper quadrant. All trocars were positioned betwe en 10-cm apart from each other. An accessory trocar 12 mm placed along the right upper abdominal wall, lateral. The [employer] robot was primed, draped, prepared for docking along upper abdomen of the patient. The patient was positioned 14 steep Trendelenburg position I then went to the [employer] console. The it administrative assistant was at bedside for exchange of the robot arms and equipment. The right indirect inguinal hernia was found. The right inguinal hernia defect was probed where large 4 x 3 centimeters hernia was found. The contents was evaginated whereby the peritoneum was scored using Endo scissors with cautery. Once completely reduced into the abdominal cavity, the peritoneal sac of the hernia was stripped. Using a nonabsorbable 2-0 VLOC, the peritoneal defect of the right inguinal hernia site was closed using a pursestring suture. The defect was found to be completely closed with complete reduction of the right indirect inguinal hernia. As an onlay, an 11.[address] mesh by [employer] was cut in half and entered into the abdominal cavity via the 8 mm trocar. The mesh was tacked to the pelvis using nonabsorbable 2-0 VLOC sutures. The robot was undocked from the patient's bedside. I then rescrubbed into the case. Insufflation was released from the abdominal cavity and all instruments were removed from the abdominal cavity. Air within the scrotum and pelvis was relieved. The subcutaneous apparatus and penile implant was functioning at the end of the case. The rest of incisions were reapproximated using 4-0 Monocryl in a running subcuticular fashion. Incisions were cleansed using dilute hydrogen peroxide. Liquid glue was applied to the skin. At the end of the procedure, the needle, sponge and instrument counts had been verified correct by the instructor adjunct surgical technician. The patient had tolerated the procedure well and was taken to the postanesthesia care unit in stable condition. Plan - Discharge Summary Discharge Rx Participant: No New Discharge Prescriptions: New Simethicone [Gas-X] 125 mg PO AC-TID PRN #20 capsule PRN Reason: Pain Acetaminophen Tab [Tylenol Tab] 1,000 mg PO Q6HR PRN #30 tablet PRN Reason: Pain Continue Tamsulosin [Flomax] 0.4 mg PO DAILY Levothyroxine Sodium [Synthroid] 88 mcg PO DAILY Cetirizine HCl [Zyrtec] 10 mg PO HS Psyllium Husk 100% [Metamucil Packet] 6 gm PO DAILY Magnesium 400 mg PO DAILY Apixaban [Eliquis] 5 mg PO BID Losartan Potassium 50 mg PO DAILY Cbd 20 mg PO BID Cholecalciferol [Vitamin D3 (25 Mcg = 1000 Iu)] 25 mcg PO DAILY predniSONE 10 mg PO DAILY Rosuvastatin [Crestor] 10 mg PO HS Melatonin [Melatonin ER] 10 mg PO HS Discharge Medication List Cetirizine HCl [Zyrtec] 10 mg PO HS 09/14/13 [History] Levothyroxine Sodium [Synthroid] 88 mcg PO DAILY 09/14/13 [History] Magnesium 400 mg PO DAILY 09/14/13 [History] Psyllium Husk 100% [Metamucil Packet] 6 gm PO DAILY 09/14/13 [History] Tamsulosin [Flomax] 0.4 mg PO DAILY 09/14/13 [History] Apixaban [Eliquis] 5 mg PO BID 05/21/14 [History] Cbd 20 mg PO BID 07/19/23 [History] Losartan Potassium 50 mg PO DAILY 07/19/23 [History] Rosuvastatin [Crestor] 10 mg PO HS 07/19/23 [History] Cholecalciferol [Vitamin D3 (25 Mcg = 1000 Iu)] 25 mcg PO DAILY 08/22/23 [History] Melatonin [Melatonin ER] 10 mg PO HS 08/22/23 [History] predniSONE 10 mg PO DAILY 08/22/23 [History] Acetaminophen Tab [Tylenol Tab] 1,000 mg PO Q6HR PRN #30 tablet 08/25/23 [Rx] Simethicone [Gas-X] 125 mg PO AC-TID PRN #20 capsule 08/25/23 [Rx] Follow up Appointment(s)/Referral(s): Hilary Max MD [STAFF PHYSICIAN] - 08/30/23 Patient Instructions/Handouts: *Surgery [facility] - (Anesthesia) Discharge Instructions Outpatient Surgery, Laparoscopic Herniorrhaphy (IP) Activity/Diet/Wound Care/Special Instructions: START BLOOD THINNER AUGUST 26 to start Recommend low-fat diet for the next 2 days. No lifting over 10 pounds in 2 weeks until September 07September shower. No bath tub soaks for two weeks until September 07 Diet as tolerated. Use Tylenol, simethicone and ibuprofen or Aleve scheduled for the next 24-48 hours for best pain relief. Use ice along incisions for today to prevent swelling. Discharge Disposition: HOME SELF-CARE
[2023-08-25 12:10] VITALS: RESP 16; TEMP 97.2
[2023-08-25 13:40] VITALS: BP 153/77; PULSE 66
--- NOTE | 2023-08-25 21:05 | P.ANPRN ---
Procedure Note - Anesthesia - Nerve Block Performed Bilateral Erector Spinae Single Time Out Performed: Yes Date of Procedure: 08/25/23 Procedure Start Time: :43 Procedure Stop Time: :49 Location of Patient: PreOp Indication: Acute Post-Operative Pain, Requested by Surgeon Sedation Type: Sedate with meaningful contact maintained Preparation: Sterile Prep Position: Prone Needle Types: Pajunk Needle Gauge: 21 Ultrasound used to visualize needle placement: Yes Ultrasound used to observe medication spread: Yes Blood Aspirated: No Pain Paresthesia on Injection Noted: No Resistance on Injection: Normal Image Stored and Saved: Yes Events: Uneventful and Well Tolerated (Ropivacaine 0.5% 15 cc plus dexamethasone 4 mg plus normal saline 10 cc given at L1 bilaterally)
== END 2023-08-25 13:41 | disposition home or self-care (01) ==
LOC: OR 08:09
PROVIDERS: ATTEND Surgery Plastic and Reconstructive Surgery
DX: K40.30 Unilateral inguinal hernia, with obstruction, without gangrene, not specified as recurrent (principal); K66.0 Peritoneal adhesions (postprocedural) (postinfection); E03.9 Hypothyroidism, unspecified; E78.5 Hyperlipidemia, unspecified; G47.33 Obstructive sleep apnea (adult) (pediatric); G89.18 Other acute postprocedural pain; F43.10 Post-traumatic stress disorder, unspecified; F41.1 Generalized anxiety disorder; D69.6 Thrombocytopenia, unspecified; I11.9 Hypertensive heart disease without heart failure; I25.10 Atherosclerotic heart disease of native coronary artery without angina pectoris; I48.20 Chronic atrial fibrillation, unspecified; J44.9 Chronic obstructive pulmonary disease, unspecified; F10.90 Alcohol use, unspecified, uncomplicated; Z79.01 Long term (current) use of anticoagulants; Z79.52 Long term (current) use of systemic steroids; Z79.890 Hormone replacement therapy; Z79.899 Other long term (current) drug therapy; Z87.891 Personal history of nicotine dependence; Z91.013 Allergy to seafood; Z88.8 Allergy status to other drugs, medicaments and biological substances; Z85.850 Personal history of malignant neoplasm of thyroid
CPT/HCPCS: 49650; 64999; 80053; 85027; C1781; J2250; J0330; J1644; J1100; J2710; J1720; J0690; J2405; J2001; J3010; J1170; J2795; J2704; 88302

== ENCOUNTER → 2024-05-10 | Outpatient (CLI) | payer MEDICARE ==
--- NOTE | 2024-05-10 13:17 | CT ---
EXAMINATION TYPE: CT chest wo con CT DLP: 234.80 mGycm, Automated exposure control for dose reduction was used. DATE OF EXAM: 05/10/2024 9:05 AM COMPARISON: Multiple CT chest with most recent 07/08/2023 CLINICAL INDICATION:Male, 78 years old with history of R91.8 OTHER NONSPECIFIC ABNORMAL FINDING OF CHRISTINA NG F; PHH, Abnormal findings lung dee, chronic cough, elevated BP TECHNIQUE: Multiple axial images were obtained through the chest without IV contrast. Lack of IV or o ral contrast limits evaluation of solid and hollow organ viscera. . Coronal and sagittal reformats re viewed. FINDINGS: LUNGS/ PLEURA: No pleural effusion or pneumothorax. Resolution of previously demonstrated right upper lobe consolidative opacities. No new suspicious pulmonary nodule or mass. Stable linear scarring wit hin the right middle lobe. Biapical pleural parenchymal scarring redemonstrated. Underlying mild emp hysematous changes redemonstrated. Unchanged bilateral dependent lower lobe subsegmental atelectasis/ scarring with adjacent right fatty Bochdalek hernia. AIRWAY: Patent and unremarkable.. HEART: Enlarged.No pericardial effusion. Small coronary calcifications. Atrial septal occlusion devic e identified. MEDIASTINUM: No gross evidence of adenopathy. VASCULATURE: No aortic aneurysm. Mild atherosclerotic calcification of the aorta and its branches. M ildly dilated main pulmonary artery measuring up to 3.1 cm which can be seen with pulmonary arterial hypertension. MUSCULOSKELETAL: Mild disc degeneration changes are present throughout the thoracolumbar spine. No ac [place] osseous abnormality. SOFT TISSUES/LYMPH NODES: Unremarkable. LOWER NECK: No significant findings. UPPER ABDOMEN: Stable chest. Pedicle 1.1 cm cyst. IMPRESSION: 1. Resolution of previously demonstrated right upper lobe consolidative opacities. 2. Stable linear scarring within the right middle lobe. 3. Mild COPD changes. [facility], , 05/10/2024 1:14 PM
== END | disposition home or self-care (01) ==
LOC: RADCTMAIN 08:45
PROVIDERS: ATTEND Internal Medicine Critical Care Medicine
DX: J44.9 Chronic obstructive pulmonary disease, unspecified (principal); R91.8 Other nonspecific abnormal finding of lung field; C44.42 Squamous cell carcinoma of skin of scalp and neck; B54 Unspecified malaria; A75.3 Typhus fever due to Rickettsia tsutsugamushi; E78.5 Hyperlipidemia, unspecified; C80.0 Disseminated malignant neoplasm, unspecified; M40.209 Unspecified kyphosis, site unspecified
CPT/HCPCS: 71250